=== PATIENT | female | born 1995 | race Caucasian/White ===

== ENCOUNTER 2018-11-27 22:21 | Emergency (ER) | payer OTHER, MEDICAID ==
[2018-11-28] MEDS: KETOROLAC 60 MG INJ IM (01:30)
== END 2018-11-28 01:55 | disposition home or self-care (01) ==
LOC: FTE 22:21
DX: R51 Headache (principal); E03.9 Hypothyroidism, unspecified
CPT/HCPCS: 81025; 96372; 99284-25

== ENCOUNTER 2018-12-06 21:31 | Emergency (ER) | payer OTHER ==
[2018-12-06 21:50] LABS: URINE BLOOD (Dip) POC Trace-intact (NEGATIVE); URINE GLUCOSE (Dip) POC Negative (NEGATIVE); URINE KETONES (Dip) POC Negative (NEGATIVE); URINE LEUKOCYTE EST (Dip) POC 1+ (NEGATIVE); URINE NITRITE (Dip) POC Negative (NEGATIVE); URINE TOTAL PROTEIN POC Negative (NEGATIVE)
[2018-12-06] MEDS: SOD CHLORIDE 0.9% 1,000 ML IV (22:05)
[2018-12-06] MEDS: KETOROLAC 15 MG INJ IV (22:05)
[2018-12-06] MEDS: ACETAMINOPHEN 325 MG TAB PO (22:12)
[2018-12-06] MEDS: ACETAMINOPHEN 650MG/20.3ML CUP PO (22:15)
[2018-12-07] MEDS: OSELTAMIVIR 75 MG CAP PO (00:13)
== END 2018-12-07 00:33 | disposition home or self-care (01) ==
LOC: E/R 12-07 00:33
DX: R50.9 Fever, unspecified (principal); R05 Cough; E03.9 Hypothyroidism, unspecified
CPT/HCPCS: 71045; 81003; 81025; 83605; 87400; 96374; 99284-25